=== PATIENT | female | born 1975 | race Caucasian/White ===

== ENCOUNTER 2022-08-06 09:08 | Day surgery (SDC) | payer OTHER ==
[~2022-08-06 09:08] MED LIST: AMOXICILLIN500 MG OR; FARXIGA5 MG PO; GABAPENTIN100 MG PO; HYDROCO/APAP1 TA9 PO; LANTUS100 UNIT; LISINOPRIL20 MG PO; MOTRIN400 MG/TAB PO; NAPROSYN500 MG OR; SERTRALINE50 MG PO; TRULICITY1.5 MG/0.5
[2022-08-06 11:15] VITALS: BP 111/60
== END 2022-08-06 11:20 | disposition home or self-care (01) ==
LOC: ORM 09:08
PROVIDERS: ATTEND Surgery
DX: R22.1 Localized swelling, mass and lump, neck (principal)
CPT/HCPCS: J0690